=== PATIENT | female | born 1985 | race Caucasian/White ===

== ENCOUNTER 2016-05-29 00:27 | Emergency (ER) | payer OTHER ==
[~2016-05-29 00:27] MED LIST: ACET50TA PO; MOTR200T44 PO; PRENTAB55 PO; PROG50IN5 IM
[2016-05-29] MEDS ORDERED: traMADol 50 MG TAB As Ordered ONE ×2 (00:39)
[2016-05-29] MEDS ORDERED: CLINDAMYCIN 150 MG CAP As Ordered ONE (00:40)
--- NOTE | 2016-05-29 00:45 | EDDOCDS ---
Nurse's Notes [facility] Name: Angy Blount Age: 31 yrs Sex: Female : 1985 Arrival Date: 05/29/2016 Time: 00:27 Bed Triage 1 Private MD: Loreto Parker A Diagnosis: Dental caries Presentation: 05/29 00:33 Presenting complaint: Patient states: Cracked tooth. Pain started 2 days ago. Pt ld5 presents to ER with increasing pain. Adult Sepsis Screening: The patient does not have new or worsening altered mentation. Patient's respiratory rate is less than 22. Systolic blood pressure is greater than 100. Patient has a qSOFA score of 0- Negative Sepsis Screen. Suicide/Homicide risk assessment- the patient denies having any suicidal and/or homicidal ideations and does not present with any other emotional, behavioral or mental health complaints. 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 Transition of care: patient was not received from another setting of care. 00:33 Acuity: JULIA Level 4 ld5 00:33 Method Of Arrival: Walkin/Carried/Asstd ld5 Triage Assessment: 00:34 General: Appears in no apparent distress. Pain: Location: mouth Pain currently is 7 out ld5 of 10 on a pain scale. HIV screening NA for this visit Offered previously. Neurological: Level of Consciousness is awake, alert. 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 none - PMHx: none; - PSHx: Tubal ligation; - Social history: Smoking status: Patient uses tobacco products, current every day smoker. No barriers to communication noted, The patient speaks fluent Gabonese, Speaks appropriately for age. - Family history: Not pertinent. - : The pt / caregiver states he / she is not on anticoagulants. Home medication list is obtained from the patient. - Exposure Risk Screening:: None identified. Screenin:37 Screening information is obtained from the patient. Fall risk: No risks identified. ld5 Assistance ADL's: requires no assistance with activities of daily living. Abuse/DV Screen: The patient / caregiver reports he/she is: not in a situation that causes fear, pain or injury. Nutritional screening: No deficits noted. Advance Directives: Currently, there is no health care proxy. home support is adequate. Assessment: 00:37 General: Appears in no apparent distress. EENT: Reports pain in mouth. Respiratory: ld5 Airway is patent Respiratory effort is even, unlabored. Vital Signs: 00:34 BP 148 / 76; Pulse 77; Resp 16; Temp 97.9; Pulse Ox 100% on R/A; Weight 58.97 kg (R); ld5 Height 5 ft. 9 in. (175.26 cm) (R); Pain 7/10; 00:34 Body Mass Index 19.20 (58.97 kg, 175.26 cm) ld5 Vitals: 00:34 Log In Time: May 29, 2016 at 00:27. ld5 ED Course: 00:28 Patient visited by Elliot Stoddard Reg. pm4 00:28 Loreto Parker is Private Physician. pm4 00:28 Patient moved to Waiting pm4 00:32 Brandon Wright PA is PHCP. btw 00:32 Rod Donnelly DO is Attending Physician. btw 00:32 Patient moved to Triage 1 mcp 00:34 Patient visited by Brandon Wright PA. btw 00:34 Donta Diaz is Referral Physician. btw 00:34 Triage Initiated ld5 00:36 Patient visited by Marilu Paulino RN. ld5 00:37 The patient / caregiver is instructed regarding the plan of care and ED course. Patient ld5 has correct armband on for positive identification. 00:37 No IV's were initiated during this patient's visit. No procedures done that require ld5 assistance. 00:38 Patient visited by Marilu Paulino RN. ld5 00:44 Patient visited by Marilu Paulino RN. ld5 Administered Medications: 00:43 Drug: Clindamycin 300 mg [clindamycin 150 mg capsule (2 caps)] Route: PO; nn1 00:43 Drug: traMADol 50mg- 4 pack 1 packets [tramadol 50 mg tablet (1 tabs)] {Co-Signature: nn1 kas2 (Megan Chavez RN).} Route: PO; Order Results: There are currently no results for this order. Outcome: 00:35 Discharge ordered by Provider. btw 00:43 Discharge Assessment: Patient awake, alert and oriented x 3. No cognitive and/or ld5 functional deficits noted. Patient verbalized understanding of disposition instructions. patient administered narcotics - no. The following High Risk Discharge criteria are identified: None. Discharged to home ambulatory. Condition: stable. Discharge instructions given to patient, Instructed on discharge instructions, follow up and referral plans. medication usage, Demonstrated understanding of instructions, medications, Pt was receptive of discharge instructions/ teaching. Prescriptions given X 2. No special radiology studies were completed. Property :Personal belongings accompany Pt. 00:44 Patient left the ED. ld5 Signatures: Altagracia Fuller, RN RN Brandon Scruggs PA PA btw Dickerson, LauraRN RN ld5 Phillip TrinidadRN RN nn1 Elliot Stoddard, Reg Reg pm4 Megan Chavez RN kas2 MTDD
--- NOTE | 2016-05-29 00:45 | EDDOCDS ---
Physician Documentation [facility] Name: Angy Blount Age: 31 yrs Sex: Female : 1985 Arrival Date: 05/29/2016 Time: 00:27 Bed Triage 1 Private MD: Loreto Parker A Disposition: 05/29/16 00:35 Discharged to Home/Self Care. Impression: Dental caries. - Condition is Stable. - Discharge Instructions: Dental Pain. - Prescriptions for Clindamycin HCl 300 mg Oral Capsule - take 1 capsule by ORAL route every 6 hours; 40 capsule. etodolac 200 mg Oral Capsule - take 1 capsule by ORAL route 3 times per day; 30 capsule. - Medication Reconciliation, Local Pharmacy Hours form. - Follow up: Your, Dentist; When: Call to arrange an appointment; Reason: Further diagnostic work-up, Recheck today's complaints, Continuance of care. - Problem is an ongoing problem. - Symptoms are unchanged. Historical: - Allergies: SULFA (SULFONAMIDES); - Home Meds: 1. none - PMHx: none; - PSHx: Tubal ligation; - Social history: Smoking status: Patient uses tobacco products, current every day smoker. No barriers to communication noted, The patient speaks fluent Urdu, Speaks appropriately for age. - Family history: Not pertinent. - : The pt / caregiver states he / she is not on anticoagulants. Home medication list is obtained from the patient. - Exposure Risk Screening:: None identified. 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 9 in. (175.26 cm) (R); Pain 7/10; 00:34 Body Mass Index 19.20 (58.97 kg, 175.26 cm) ld5 MDM: 00:38 Clindamycin 300 mg PO once ordered. btw 00:38 traMADol 50mg- 4 pack 1 packets PO Per package directions; Dispense with patient. Take btw per package instructions. ordered. 00:39 Financial registration complete. hs2 Administered Medications: 00:43 Drug: Clindamycin 300 mg [clindamycin 150 mg capsule (2 caps)] Route: PO; nn1 00:43 Drug: traMADol 50mg- 4 pack 1 packets [tramadol 50 mg tablet (1 tabs)] {Co-Signature: nn1 joe2 (Megan Chavez RN).} Route: PO; Signatures: Brandon Wright PA PA btw Marilu Paulino RN RN ld5 Mirna Mccarthy, Reg Reg hs2 Phillip Trinidad RN nn1 Megan Chavez RN kas2 MTDD
--- NOTE | 2016-05-31 01:45 | EDDOCDS ---
Physician Documentation [facility] Name: Angy Blount Age: 31 yrs Sex: Female : 1985 Arrival Date: 05/29/2016 Time: 00:27 Bed Triage 1 Private MD: Loreto Parker A Disposition: 05/29/16 00:35 Discharged to Home/Self Care. Impression: Dental caries. - Condition is Stable. - Discharge Instructions: Dental Pain. - Prescriptions for Clindamycin HCl 300 mg Oral Capsule - take 1 capsule by ORAL route every 6 hours; 40 capsule. etodolac 200 mg Oral Capsule - take 1 capsule by ORAL route 3 times per day; 30 capsule. - Medication Reconciliation, Local Pharmacy Hours form. - Follow up: Your, Dentist; When: Call to arrange an appointment; Reason: Further diagnostic work-up, Recheck today's complaints, Continuance of care. - Problem is an ongoing problem. - Symptoms are unchanged. Historical: - Allergies: SULFA (SULFONAMIDES); - Home Meds: 1. none - PMHx: none; - PSHx: Tubal ligation; - Social history: Smoking status: Patient uses tobacco products, current every day smoker. No barriers to communication noted, The patient speaks fluent Faroese, Speaks appropriately for age. - Family history: Not pertinent. - : The pt / caregiver states he / she is not on anticoagulants. Home medication list is obtained from the patient. - Exposure Risk Screening:: None identified. 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 9 in. (175.26 cm) (R); Pain 7/10; 00:34 Body Mass Index 19.20 (58.97 kg, 175.26 cm) ld5 MDM: 00:38 Clindamycin 300 mg PO once ordered. btw 00:38 traMADol 50mg- 4 pack 1 packets PO Per package directions; Dispense with patient. Take btw per package instructions. ordered. 00:39 Financial registration complete. hs2 01:12 [facility] Payment Agreement was scanned into [employer] and attached to record. hs2 06:40 T-Sheet-- Draft Copy was scanned into [employer] and attached to record. se Administered Medications: 00:43 Drug: Clindamycin 300 mg [clindamycin 150 mg capsule (2 caps)] Route: PO; nn1 00:43 Drug: traMADol 50mg- 4 pack 1 packets [tramadol 50 mg tablet (1 tabs)] {Co-Signature: nn1 joe2 (Megan Chavez RN).} Route: PO; Signatures: Brandon Wright PA PA yogeshw Marilu PaulinoRN RN ld5 Mirna Mccarthy, Reg Reg hs2 Elke Bravo Nikkole RN nn1 Megan Chavez RN kas2 The chart was reviewed and I authenticate all verbal orders and agree with the evaluation and treatment provided.Attachments: 01:12 [facility] Payment Agreement hs2 06:40 T-Sheet-- Draft Copy [facility] Chart Complete MTDD
--- NOTE | 2016-05-31 01:45 | EDDOCDS ---
Nurse's Notes [facility] Name: Angy Blount Age: 31 yrs Sex: Female : 1985 Arrival Date: 05/29/2016 Time: 00:27 Bed Triage 1 Private MD: Loreto Parker A Diagnosis: Dental caries Presentation: 05/29 00:33 Presenting complaint: Patient states: Cracked tooth. Pain started 2 days ago. Pt ld5 presents to ER with increasing pain. Adult Sepsis Screening: The patient does not have new or worsening altered mentation. Patient's respiratory rate is less than 22. Systolic blood pressure is greater than 100. Patient has a qSOFA score of 0- Negative Sepsis Screen. Suicide/Homicide risk assessment- the patient denies having any suicidal and/or homicidal ideations and does not present with any other emotional, behavioral or mental health complaints. 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 Transition of care: patient was not received from another setting of care. 00:33 Acuity: JULIA Level 4 ld5 00:33 Method Of Arrival: Walkin/Carried/Asstd ld5 Triage Assessment: 00:34 General: Appears in no apparent distress. Pain: Location: mouth Pain currently is 7 out ld5 of 10 on a pain scale. HIV screening NA for this visit Offered previously. Neurological: Level of Consciousness is awake, alert. 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 none - PMHx: none; - PSHx: Tubal ligation; - Social history: Smoking status: Patient uses tobacco products, current every day smoker. No barriers to communication noted, The patient speaks fluent Sierra Leonean, Speaks appropriately for age. - Family history: Not pertinent. - : The pt / caregiver states he / she is not on anticoagulants. Home medication list is obtained from the patient. - Exposure Risk Screening:: None identified. Screenin:37 Screening information is obtained from the patient. Fall risk: No risks identified. ld5 Assistance ADL's: requires no assistance with activities of daily living. Abuse/DV Screen: The patient / caregiver reports he/she is: not in a situation that causes fear, pain or injury. Nutritional screening: No deficits noted. Advance Directives: Currently, there is no health care proxy. home support is adequate. Assessment: 00:37 General: Appears in no apparent distress. EENT: Reports pain in mouth. Respiratory: ld5 Airway is patent Respiratory effort is even, unlabored. Vital Signs: 00:34 BP 148 / 76; Pulse 77; Resp 16; Temp 97.9; Pulse Ox 100% on R/A; Weight 58.97 kg (R); ld5 Height 5 ft. 9 in. (175.26 cm) (R); Pain 7/10; 00:34 Body Mass Index 19.20 (58.97 kg, 175.26 cm) ld5 Vitals: 00:34 Log In Time: May 29, 2016 at 00:27. ld5 ED Course: 00:28 Patient visited by Elliot Stoddard Reg. pm4 00:28 Loreto Parker is Private Physician. pm4 00:28 Patient moved to Waiting pm4 00:32 Brandon Wright PA is PHCP. btw 00:32 Rod Donnelly DO is Attending Physician. btw 00:32 Patient moved to Triage 1 mcp 00:34 Patient visited by Brandon Wright PA. btw 00:34 Donta Diaz is Referral Physician. btw 00:34 Triage Initiated ld5 00:36 Patient visited by Marilu Paulino RN. ld5 00:37 The patient / caregiver is instructed regarding the plan of care and ED course. Patient ld5 has correct armband on for positive identification. 00:37 No IV's were initiated during this patient's visit. No procedures done that require ld5 assistance. 00:38 Patient visited by Marilu Paulino RN. ld5 00:44 Patient visited by Marilu Paulino RN. ld5 01:12 [facility] Payment Agreement was scanned into [employer] and attached to record. hs2 06:40 T-Sheet-- Draft Copy was scanned into [employer] and attached to record. se Administered Medications: 00:43 Drug: Clindamycin 300 mg [clindamycin 150 mg capsule (2 caps)] Route: PO; nn1 00:43 Drug: traMADol 50mg- 4 pack 1 packets [tramadol 50 mg tablet (1 tabs)] {Co-Signature: nn1 kas2 (Megan Chavez RN).} Route: PO; Order Results: There are currently no results for this order. Outcome: 00:35 Discharge ordered by Provider. btw 00:43 Discharge Assessment: Patient awake, alert and oriented x 3. No cognitive and/or ld5 functional deficits noted. Patient verbalized understanding of disposition instructions. patient administered narcotics - no. The following High Risk Discharge criteria are identified: None. Discharged to home ambulatory. Condition: stable. Discharge instructions given to patient, Instructed on discharge instructions, follow up and referral plans. medication usage, Demonstrated understanding of instructions, medications, Pt was receptive of discharge instructions/ teaching. Prescriptions given X 2. No special radiology studies were completed. Property :Personal belongings accompany Pt. 00:44 Patient left the ED. ld5 Signatures: Altagracia Fuller, RN RN Brandon Scruggs PA PA btw Marilu Paulino,GINA RN ld5 Phillip Trinidad RN RN nn1 Mirna Mccarthy, Reg Reg hs2 Elke Bravo Paul, Reg Reg pm4 Megan Chavez RN kas2 Chart Complete [facility]ENTER[facility]gar
--- NOTE | 2016-05-31 01:45 | EDDOCDS ---
Physician Documentation [facility] Name: Angy Blount Age: 31 yrs Sex: Female : 1985 Arrival Date: 05/29/2016 Time: 00:27 Bed Triage 1 Private MD: Loreto Parker A Disposition: 05/29/16 00:35 Discharged to Home/Self Care. Impression: Dental caries. - Condition is Stable. - Discharge Instructions: Dental Pain. - Prescriptions for Clindamycin HCl 300 mg Oral Capsule - take 1 capsule by ORAL route every 6 hours; 40 capsule. etodolac 200 mg Oral Capsule - take 1 capsule by ORAL route 3 times per day; 30 capsule. - Medication Reconciliation, Local Pharmacy Hours form. - Follow up: Your, Dentist; When: Call to arrange an appointment; Reason: Further diagnostic work-up, Recheck today's complaints, Continuance of care. - Problem is an ongoing problem. - Symptoms are unchanged. Historical: - Allergies: SULFA (SULFONAMIDES); - Home Meds: 1. none - PMHx: none; - PSHx: Tubal ligation; - Social history: Smoking status: Patient uses tobacco products, current every day smoker. No barriers to communication noted, The patient speaks fluent Japanese, Speaks appropriately for age. - Family history: Not pertinent. - : The pt / caregiver states he / she is not on anticoagulants. Home medication list is obtained from the patient. - Exposure Risk Screening:: None identified. 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 9 in. (175.26 cm) (R); Pain 7/10; 00:34 Body Mass Index 19.20 (58.97 kg, 175.26 cm) ld5 MDM: 00:38 Clindamycin 300 mg PO once ordered. btw 00:38 traMADol 50mg- 4 pack 1 packets PO Per package directions; Dispense with patient. Take btw per package instructions. ordered. 00:39 Financial registration complete. hs2 01:12 [facility] Payment Agreement was scanned into [employer] and attached to record. hs2 06:40 T-Sheet-- Draft Copy was scanned into [employer] and attached to record. se Administered Medications: 00:43 Drug: Clindamycin 300 mg [clindamycin 150 mg capsule (2 caps)] Route: PO; nn1 00:43 Drug: traMADol 50mg- 4 pack 1 packets [tramadol 50 mg tablet (1 tabs)] {Co-Signature: nn1 joe2 (Megan Chavez RN).} Route: PO; Signatures: Brandon Wright PA PA yogeshw Marilu PaulinoRN RN ld5 Mirna Mccarthy, Reg Reg hs2 Elke Bravo Nikkole RN nn1 Megan Chavez RN kas2 The chart was reviewed and I authenticate all verbal orders and agree with the evaluation and treatment provided.Attachments: 01:12 [facility] [place] [facility] Payment Agreement hs2 06:40 T-Sheet-- Draft Copy [facility] Chart Complete MTDD
== END 2016-05-29 00:44 | disposition home or self-care (01) ==
LOC: M ED 00:27
DX: K02.9 Dental caries, unspecified (principal); F17.200 Nicotine dependence, unspecified, uncomplicated; Z88.2 Allergy status to sulfonamides

== ENCOUNTER 2016-06-09 18:41 | Emergency (ER) | payer OTHER ==
[2016-06-09] MEDS ORDERED: NORCO 5/325MG TABLET (BULK) As Ordered ONE (19:57)
--- NOTE | 2016-06-09 20:05 | EDDOCDS ---
Nurse's Notes [facility] Name: Angy Blount Age: 31 yrs Sex: Female : 1985 Arrival Date: 06/09/2016 Time: 18:41 Bed Triage 2 Private MD: Loreto Parker A Diagnosis: Dental caries Presentation: 06/09 18:46 Presenting complaint: Patient states: jaw pain on left side into ear. Adult Sepsis hs1 Screening: The patient does not have new or worsening altered mentation. Patient's respiratory rate is less than 22. Systolic blood pressure is greater than 100. Patient has a qSOFA score of 0- Negative Sepsis Screen. Suicide/Homicide risk assessment- the patient denies having any suicidal and/or homicidal ideations and does not present with any other emotional, behavioral or mental health complaints. 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 Transition of care: patient was not received from another setting of care. 18:46 Acuity: JULIA Level 4 hs1 18:46 Method Of Arrival: Walkin/Carried/Asstd hs1 Triage Assessment: 18:50 General: Appears uncomfortable, Behavior is appropriate for age, cooperative. Pain: hs1 Location: mouth Pain currently is 7 out of 10 on a pain scale. Quality of pain is described as throbbing. HIV screening NA for this visit Offered previously. EENT: Reports pain Pain is 7 out of 10 on a pain scale. Historical: - Allergies: SULFA (SULFONAMIDES); - Home Meds: 1. clindamycin HCl 300 mg Oral cap 1 cap every 6 hours (Last dose: 06/09/2016 17:30) - PMHx: none; - PSHx: Tubal ligation; - Social history: Smoking status: Patient uses tobacco products, heavy tobacco smoker. No barriers to communication noted, The patient speaks fluent Luxembourgish, Speaks appropriately for age. - Family history: Not pertinent. - : The pt / caregiver states he / she is not on anticoagulants. Home medication list is obtained from. - Exposure Risk Screening:: None identified. Screenin:03 Screening information is obtained from the patient. Fall risk: No risks identified. ttb Assistance ADL's: requires no assistance with activities of daily living. Abuse/DV Screen: The patient / caregiver reports he/she is: not in a situation that causes fear, pain or injury. Nutritional screening: No deficits noted. Advance Directives: Currently, there is no health care proxy. home support is adequate. Assessment: 20:01 General: Appears in no apparent distress, uncomfortable, well nourished, well groomed, ttb Behavior is appropriate for age, cooperative, pleasant. Neurological: Level of Consciousness is awake, alert. Respiratory: No deficits noted. Airway is patent Respiratory effort is even, unlabored. Derm: Skin is normal. Vital Signs: 18:43 BP 127 / 71; Pulse 84; Resp 18 S; Temp 98.1(O); Pulse Ox 100% on R/A; Weight 58.97 kg gr2 (R); Height 5 ft. 8 in. (172.72 cm) (R); Pain 8/10; 20:01 BP 124 / 74; Pulse 76; Resp 18; Temp 98.2; Pulse Ox 100% on R/A; Pain 8/10; ttb 18:43 Body Mass Index 19.77 (58.97 kg, 172.72 cm) gr2 Vitals: 18:43 Log In Time: June 09, 2016 at 18:43. gr2 ED Course: 18:42 Patient visited by Ravi Garcia. gr2 18:42 Loreto Parker is Private Physician. gr2 18:42 Patient moved to Waiting gr2 18:44 Patient visited by Ravi Garcia. gr2 18:44 Patient moved to Pre RCE gr2 18:47 Triage Initiated hs1 19:46 Nikunj Aguilar PA is PHCP. mo1 19:46 Song Anaya MD is Attending Physician. mo1 19:46 Patient moved to Triage 2 ttb 19:47 Patient visited by Nikunj Aguilar PA. mo1 19:56 Loreto Parker is Referral Physician. mo1 20:03 The patient / caregiver is instructed regarding the plan of care and ED course. Patient ttb has correct armband on for positive identification. 20:03 No IV's were initiated during this patient's visit. No procedures done that require ttb assistance. Administered Medications: 20:01 Drug: HYDROcodone-acetaminophen 4 pack- 1 packets [hydrocodone 5 mg-acetaminophen 325 ttb mg tablet (1 tabs)] {Co-Signature: kmg1 (Raiza Stone RN).} Route: PO; 20:03 Follow up: Response: Med's dispensed home ttb Order Results: There are currently no results for this order. Outcome: 19:56 Discharge ordered by Provider. mo1 20:02 Discharge Assessment: Patient awake, alert and oriented x 3. No cognitive and/or ttb functional deficits noted. Patient verbalized understanding of disposition instructions. Patient awake and alert. patient administered narcotics - no. The following High Risk Discharge criteria are identified: None. Discharged to home ambulatory. Condition: good Condition: stable Condition: improved. Discharge instructions given to patient, Instructed on discharge instructions, follow up and referral plans. medication usage, no driving heavy equipment, no drinking with medication, Demonstrated understanding of instructions, medications, no d/d with narcs Pt was receptive of discharge instructions/ teaching. Prescriptions given X 1, meds dispensed. No special radiology studies were completed. Property :Personal belongings accompany Pt. 20:04 Patient left the ED. ttb Signatures: Janiya Rascon RN RN hs1 Nga Ortiz RN RN ttb Ravi Garcia 2 Nikunj Aguilar PA PA mo1 Raiza Stone RN kmg1 [email or web address]
--- NOTE | 2016-06-09 20:05 | EDDOCDS ---
Physician Documentation [facility] Name: Angy Blount Age: 31 yrs Sex: Female : 1985 Arrival Date: 06/09/2016 Time: 18:41 Bed Triage 2 Private MD: Loreto Parker A Disposition: 06/09/16 19:56 Discharged to Home/Self Care. Impression: Dental caries. - Condition is Stable. - Discharge Instructions: Dental Abscess, Dental Pain. - Prescriptions for Derby 5- 325 mg Oral Tablet - take 1 tablet by ORAL route every 6 hours As needed MDD: 4 tabs; 12 tablet. - Medication Reconciliation, Local Pharmacy Hours form. - Follow up: Loreto Parker; When: Call to arrange an appointment; Reason: Recheck today's complaints, Continuance of care. - Problem is an ongoing problem. - Symptoms are unchanged. Historical: - Allergies: SULFA (SULFONAMIDES); - Home Meds: 1. clindamycin HCl 300 mg Oral cap 1 cap every 6 hours (Last dose: 06/09/2016 17:30) - PMHx: none; - PSHx: Tubal ligation; - Social history: Smoking status: Patient uses tobacco products, heavy tobacco smoker. No barriers to communication noted, The patient speaks fluent Latvian, Speaks appropriately for age. - Family history: Not pertinent. - : The pt / caregiver states he / she is not on anticoagulants. Home medication list is obtained from. - Exposure Risk Screening:: None identified. Vital Signs: 06/09 18:43 BP 127 / 71; Pulse 84; Resp 18 S; Temp 98.1(O); Pulse Ox 100% on R/A; Weight 58.97 kg / gr2 130.01 lbs (R); Height 5 ft. 8 in. (172.72 cm) (R); Pain 8/10; 20:01 BP 124 / 74; Pulse 76; Resp 18; Temp 98.2; Pulse Ox 100% on R/A; Pain 8/10; ttb 18:43 Body Mass Index 19.77 (58.97 kg, 172.72 cm) gr2 MDM: 19:54 HYDROcodone-acetaminophen 4 pack- 5 mg-325 mg 1 packets PO Per package directions; mo1 Dispense with patient. 1 po q4h prn for pain ordered. Administered Medications: 20:01 Drug: HYDROcodone-acetaminophen 4 pack- 1 packets [hydrocodone 5 mg-acetaminophen 325 ttb mg tablet (1 tabs)] {Co-Signature: kmg1 (Raiza Stone RN).} Route: PO; 20:03 Follow up: Response: Med's dispensed home ttb Signatures: Janiya Rascon RN RN hs1 Nga Ortiz RN RN ttb Nikunj Aguilar PA PA mo1 Raiza Stone RN kmg1 MTDD
--- NOTE | 2016-06-11 21:06 | EDDOCDS ---
Physician Documentation [facility] Name: Angy Blount Age: 31 yrs Sex: Female : 1985 Arrival Date: 06/09/2016 Time: 18:41 Bed Triage 2 Private MD: Loreto Parker A Disposition: 06/09/16 19:56 Discharged to Home/Self Care. Impression: Dental caries. - Condition is Stable. - Discharge Instructions: Dental Abscess, Dental Pain. - Prescriptions for Clay 5- 325 mg Oral Tablet - take 1 tablet by ORAL route every 6 hours As needed MDD: 4 tabs; 12 tablet. - Medication Reconciliation, Local Pharmacy Hours form. - Follow up: Loreto Parker; When: Call to arrange an appointment; Reason: Recheck today's complaints, Continuance of care. - Problem is an ongoing problem. - Symptoms are unchanged. Historical: - Allergies: SULFA (SULFONAMIDES); - Home Meds: 1. clindamycin HCl 300 mg Oral cap 1 cap every 6 hours (Last dose: 06/09/2016 17:30) - PMHx: none; - PSHx: Tubal ligation; - Social history: Smoking status: Patient uses tobacco products, heavy tobacco smoker. No barriers to communication noted, The patient speaks fluent Ugandan, Speaks appropriately for age. - Family history: Not pertinent. - : The pt / caregiver states he / she is not on anticoagulants. Home medication list is obtained from. - Exposure Risk Screening:: None identified. Vital Signs: 06/09 18:43 BP 127 / 71; Pulse 84; Resp 18 S; Temp 98.1(O); Pulse Ox 100% on R/A; Weight 58.97 kg / gr2 130.01 lbs (R); Height 5 ft. 8 in. (172.72 cm) (R); Pain 8/10; 20:01 BP 124 / 74; Pulse 76; Resp 18; Temp 98.2; Pulse Ox 100% on R/A; Pain 8/10; ttb 18:43 Body Mass Index 19.77 (58.97 kg, 172.72 cm) gr2 MDM: 19:54 HYDROcodone-acetaminophen 4 pack- 5 mg-325 mg 1 packets PO Per package directions; mo1 Dispense with patient. 1 po q4h prn for pain ordered. 20:11 [facility] Payment Agreement was scanned into [employer] and attached to record. [facility] : Financial registration complete. [facility] 06/10 13:09 T-Sheet-- Draft Copy was scanned into [employer] and attached to record. gb Administered Medications: 06/09 20:01 Drug: HYDROcodone-acetaminophen 4 pack- 1 packets [hydrocodone 5 mg-acetaminophen 325 ttb mg tablet (1 tabs)] {Co-Signature: kmg1 (Raiza Stone RN).} Route: PO; 20:03 Follow up: Response: Med's dispensed home ttb Signatures: Flaquita Mir, Reg Reg gb Janiya Rascon RN RN hs1 Nga Ortiz RN RN ttb Nikunj Aguilar PA PA mo1 Betina Martinez b Raiza Stone RN kmg1 The chart was reviewed and I authenticate all verbal orders and agree with the evaluation and treatment provided.Attachments: :11 [facility] Payment Agreement [facility] 06/10 13:09 T-Sheet-- Draft Copy gb Chart Complete MTDD
--- NOTE | 2016-06-11 21:06 | EDDOCDS ---
Physician Documentation [facility] Name: Angy Blount Age: 31 yrs Sex: Female : 1985 Arrival Date: 06/09/2016 Time: 18:41 Bed Triage 2 Private MD: Loreto Parker A Disposition: 06/09/16 19:56 Discharged to Home/Self Care. Impression: Dental caries. - Condition is Stable. - Discharge Instructions: Dental Abscess, Dental Pain. - Prescriptions for Geraldine 5- 325 mg Oral Tablet - take 1 tablet by ORAL route every 6 hours As needed MDD: 4 tabs; 12 tablet. - Medication Reconciliation, Local Pharmacy Hours form. - Follow up: Loreto Parker; When: Call to arrange an appointment; Reason: Recheck today's complaints, Continuance of care. - Problem is an ongoing problem. - Symptoms are unchanged. Historical: - Allergies: SULFA (SULFONAMIDES); - Home Meds: 1. clindamycin HCl 300 mg Oral cap 1 cap every 6 hours (Last dose: 06/09/2016 17:30) - PMHx: none; - PSHx: Tubal ligation; - Social history: Smoking status: Patient uses tobacco products, heavy tobacco smoker. No barriers to communication noted, The patient speaks fluent Malawian, Speaks appropriately for age. - Family history: Not pertinent. - : The pt / caregiver states he / she is not on anticoagulants. Home medication list is obtained from. - Exposure Risk Screening:: None identified. Vital Signs: 06/09 18:43 BP 127 / 71; Pulse 84; Resp 18 S; Temp 98.1(O); Pulse Ox 100% on R/A; Weight 58.97 kg / gr2 130.01 lbs (R); Height 5 ft. 8 in. (172.72 cm) (R); Pain 8/10; 20:01 BP 124 / 74; Pulse 76; Resp 18; Temp 98.2; Pulse Ox 100% on R/A; Pain 8/10; ttb 18:43 Body Mass Index 19.77 (58.97 kg, 172.72 cm) gr2 MDM: 19:54 HYDROcodone-acetaminophen 4 pack- 5 mg-325 mg 1 packets PO Per package directions; mo1 Dispense with patient. 1 po q4h prn for pain ordered. 20:11 [facility] Payment Agreement was scanned into [employer] and attached to record. banner : Financial registration complete. banner 06/10 13:09 T-Sheet-- Draft Copy was scanned into [employer] and attached to record. gb Administered Medications: 06/09 20:01 Drug: HYDROcodone-acetaminophen 4 pack- 1 packets [hydrocodone 5 mg-acetaminophen 325 ttb mg tablet (1 tabs)] {Co-Signature: kmg1 (Raiza Stone RN).} Route: PO; 20:03 Follow up: Response: Med's dispensed home ttb Signatures: Flaquita Mir, Reg Reg gb Janiya Rascon RN RN hs1 Nga Ortiz RN RN ttb Nikunj Aguilar PA PA mo1 Betina Martinez b Raiza Stone RN kmg1 The chart was reviewed and I authenticate all verbal orders and agree with the evaluation and treatment provided.Attachments: :11 [facility] Payment Agreement banner 06/10 13:09 T-Sheet-- Draft Copy gb Chart Complete MTDD
--- NOTE | 2016-06-11 21:06 | EDDOCDS ---
Nurse's Notes [facility] Name: Angy Blount Age: 31 yrs Sex: Female : 1985 Arrival Date: 06/09/2016 Time: 18:41 Bed Triage 2 Private MD: Loreto Parker A Diagnosis: Dental caries Presentation: 06/09 18:46 Presenting complaint: Patient states: jaw pain on left side into ear. Adult Sepsis hs1 Screening: The patient does not have new or worsening altered mentation. Patient's respiratory rate is less than 22. Systolic blood pressure is greater than 100. Patient has a qSOFA score of 0- Negative Sepsis Screen. Suicide/Homicide risk assessment- the patient denies having any suicidal and/or homicidal ideations and does not present with any other emotional, behavioral or mental health complaints. Status: Patient is not a financial services agent or dependent. Transition of care: patient was not received from another setting of care. 18:46 Acuity: JULIA Level 4 hs1 18:46 Method Of Arrival: Walkin/Carried/Asstd hs1 Triage Assessment: 18:50 General: Appears uncomfortable, Behavior is appropriate for age, cooperative. Pain: hs1 Location: mouth Pain currently is 7 out of 10 on a pain scale. Quality of pain is described as throbbing. HIV screening NA for this visit Offered previously. EENT: Reports pain Pain is 7 out of 10 on a pain scale. Historical: - Allergies: SULFA (SULFONAMIDES); - Home Meds: 1. clindamycin HCl 300 mg Oral cap 1 cap every 6 hours (Last dose: 06/09/2016 17:30) - PMHx: none; - PSHx: Tubal ligation; - Social history: Smoking status: Patient uses tobacco products, heavy tobacco smoker. No barriers to communication noted, The patient speaks fluent Occitan, Speaks appropriately for age. - Family history: Not pertinent. - : The pt / caregiver states he / she is not on anticoagulants. Home medication list is obtained from. - Exposure Risk Screening:: None identified. Screenin:03 Screening information is obtained from the patient. Fall risk: No risks identified. ttb Assistance ADL's: requires no assistance with activities of daily living. Abuse/DV Screen: The patient / caregiver reports he/she is: not in a situation that causes fear, pain or injury. Nutritional screening: No deficits noted. Advance Directives: Currently, there is no health care proxy. home support is adequate. Assessment: 20:01 General: Appears in no apparent distress, uncomfortable, well nourished, well groomed, ttb Behavior is appropriate for age, cooperative, pleasant. Neurological: Level of Consciousness is awake, alert. Respiratory: No deficits noted. Airway is patent Respiratory effort is even, unlabored. Derm: Skin is normal. Vital Signs: 18:43 BP 127 / 71; Pulse 84; Resp 18 S; Temp 98.1(O); Pulse Ox 100% on R/A; Weight 58.97 kg gr2 (R); Height 5 ft. 8 in. (172.72 cm) (R); Pain 8/10; 20:01 BP 124 / 74; Pulse 76; Resp 18; Temp 98.2; Pulse Ox 100% on R/A; Pain 8/10; ttb 18:43 Body Mass Index 19.77 (58.97 kg, 172.72 cm) gr2 Vitals: 18:43 Log In Time: June 09, 2016 at 18:43. gr2 ED Course: 18:42 Patient visited by Ravi Garcia. gr2 18:42 Loreto Parker is Private Physician. gr2 18:42 Patient moved to Waiting gr2 18:44 Patient visited by Ravi Garcia. gr2 18:44 Patient moved to Pre RCE gr2 18:47 Triage Initiated hs1 19:46 Nikunj Aguilar PA is PHCP. mo1 19:46 Song Anaya MD is Attending Physician. mo1 19:46 Patient moved to Triage 2 ttb 19:47 Patient visited by Nikunj Aguilar PA. mo1 19:56 Loreto Parker is Referral Physician. mo1 20:03 The patient / caregiver is instructed regarding the plan of care and ED course. Patient ttb has correct armband on for positive identification. 20:03 No IV's were initiated during this patient's visit. No procedures done that require ttb assistance. 20:11 [facility] [place] Agreement was scanned into [employer] and attached to record. gjb 06/10 13:09 T-Sheet-- Draft Copy was scanned into [employer] and attached to record. gb Administered Medications: 06/09 20:01 Drug: HYDROcodone-acetaminophen 4 pack- 1 packets [hydrocodone 5 mg-acetaminophen 325 ttb mg tablet (1 tabs)] {Co-Signature: kmg1 (Raiza Stone RN).} Route: PO; 20:03 Follow up: Response: Med's dispensed home ttb Order Results: There are currently no results for this order. Outcome: 19:56 Discharge ordered by Provider. mo1 20:02 Discharge Assessment: Patient awake, alert and oriented x 3. No cognitive and/or ttb functional deficits noted. Patient verbalized understanding of disposition instructions. Patient awake and alert. patient administered narcotics - no. The following High Risk Discharge criteria are identified: None. Discharged to home ambulatory. Condition: good Condition: stable Condition: improved. Discharge instructions given to patient, Instructed on discharge instructions, follow up and referral plans. medication usage, no driving heavy equipment, no drinking with medication, Demonstrated understanding of instructions, medications, no d/d with narcs Pt was receptive of discharge instructions/ teaching. Prescriptions given X 1, meds dispensed. No special radiology studies were completed. Property :Personal belongings accompany Pt. 20:04 Patient left the ED. ttb Signatures: Flaquita Mir, Reg Reg gb Janiya Rascon RN RN hs1 Nga Ortiz RN RN ttb Ravi Garcia gr2 Nikunj Aguilar PA PA mo1 Betina Martinezb Raiza Stone RN kmg1 Chart Complete MTDD
== END 2016-06-09 20:04 | disposition home or self-care (01) ==
LOC: M ED 18:41
DX: K02.9 Dental caries, unspecified (principal); H92.02 Otalgia, left ear; K13.79 Other lesions of oral mucosa; F17.210 Nicotine dependence, cigarettes, uncomplicated; Z79.2 Long term (current) use of antibiotics; Z88.2 Allergy status to sulfonamides

== ENCOUNTER → 2016-06-19 | Outpatient (REF) | payer OTHER | LOC: M LAB REF 12:06 | PROVIDERS: ATTEND Physician Assistant Medical | DX: B34.9 Viral infection, unspecified (principal) ==

== ENCOUNTER 2016-07-18 21:35 | Emergency (ER) | payer OTHER ==
[~2016-07-18] VITALS: Ht 172.7 cm; Wt 59.0 kg
[2016-07-18] MEDS ORDERED: METHOCARBAMOL 500 MG TAB PO ONE (23:45)
[2016-07-18] MEDS ORDERED: IBUPROFEN 800 MG TAB PO ONE (23:45)
[2016-07-18] MEDS ORDERED: MEDR4PAK PO (23:58)
[2016-07-18] MEDS ORDERED: ROBA500T PO (23:58)
[2016-07-19 00:21] VITALS: BP 116/66
== END 2016-07-19 00:24 | disposition home or self-care (01) ==
LOC: M ED 22:38
DX: M54.5 Low back pain (principal); G89.29 Other chronic pain

== ENCOUNTER → 2016-07-22 | Outpatient (CLI) | payer OTHER ==
[~2016-07-22] MED LIST changes: +MEDR4PAK PO; +ROBA500T PO
--- NOTE | 2016-07-22 12:31 | REP ---
LUMBOSACRAL SPINE SERIES: Five views of the lumbosacral spine performed. There is no compression fracture or malalignment. There is normal lumbar lordosis with no spondylolysis or spondylolisthesis. Disc spaces are well preserved. Posterior elements are intact. There is sacralization of L5 indicating a transitional vertebral body. IMPRESSION: Sacralization of L5 vertebral body indicating a transitional lumbar vertebral body. Otherwise unremarkable. Signed by Guy Blake MD 07/22/2016 12:37 P
== END ==
LOC: M RAD 10:21
PROVIDERS: ATTEND Nurse Practitioner Family
DX: M54.5 Low back pain (principal)

== ENCOUNTER 2016-07-28 11:00 | Outpatient (RCR) | payer OTHER | END 2016-07-30 | LOC: M PT 11:00 | PROVIDERS: ATTEND Nurse Practitioner Family | DX: M54.5 Low back pain (principal) ==

== ENCOUNTER 2016-08-19 10:15 | Outpatient (RCR) | payer OTHER | END 2016-08-29 | LOC: M PT 10:15 | PROVIDERS: ATTEND Nurse Practitioner Family | DX: M54.5 Low back pain (principal) ==

== ENCOUNTER 2016-09-29 20:00 | Emergency (ER) | payer OTHER ==
[~2016-09-29] VITALS: Ht 172.7 cm; Wt 59.0 kg
[2016-09-29] MEDS ORDERED: IBUP600T26 PO (21:12)
[2016-09-29 21:18] VITALS: BP 119/67
--- NOTE | 2016-09-29 22:17 | REP ---
Clinical: Pain . Technique: AP, lateral, bilateral oblique views right second digit . Findings: The osseous structures and joint spaces are intact and normal. There is no evidence for acute fracture or dislocation. Surrounding soft tissues are unremarkable. No subcutaneous emphysema or radiodense foreign body. Impression: Normal examination. No acute fracture or dislocation. Signed by Malik Matute MD 09/29/2016 10:09 P
== END 2016-09-29 21:21 | disposition home or self-care (01) ==
LOC: M ED 20:43
DX: S96.111A Strain of muscle and tendon of long extensor muscle of toe at ankle and foot level, right foot, initial encounter (principal); M79.674 Pain in right toe(s); X58.XXXA Exposure to other specified factors, initial encounter; Y92.019 Unspecified place in single-family (private) house as the place of occurrence of the external cause; Y93.89 Activity, other specified; Y99.9 Unspecified external cause status; Z88.2 Allergy status to sulfonamides; Z88.8 Allergy status to other drugs, medicaments and biological substances

== ENCOUNTER 2016-12-06 01:13 | Emergency (ER) | payer OTHER ==
[~2016-12-06 01:13] MED LIST changes: +IBUP-1022 PO
[2016-12-06 01:36] VITALS: BP 117/64
[2016-12-06] MEDS ORDERED: BENA25CA4 PO (01:39)
[2016-12-06] MEDS ORDERED: FLUORESCEIN OPHTH 1 MG STRIP OU ONE (03:00)
[2016-12-06] MEDS ORDERED: TETRACAINE 0.5% OPHTH SOLN 4ML OU ONE (03:00)
[2016-12-06] MEDS ORDERED: OLOP1OPD OU (03:20)
[2016-12-06] MEDS ORDERED: predniSONE 20 MG TAB PO ONE (03:30)
== END 2016-12-06 03:30 | disposition home or self-care (01) ==
LOC: M ED 01:13
DX: H10.11 Acute atopic conjunctivitis, right eye (principal); Z79.899 Other long term (current) drug therapy; Z88.2 Allergy status to sulfonamides; Z88.1 Allergy status to other antibiotic agents

== ENCOUNTER → 2017-06-01 | Outpatient (REF) | payer OTHER ==
[2017-06-01 21:10] LABS: INFLUENZA A AMPLIFICATION NEGATIVE (NEGATIVE); INFLUENZA B AMPLIFICATION NEGATIVE (NEGATIVE); RSV AMPLIFICATION NEGATIVE (NEGATIVE)
== END ==
LOC: M LAB REF 14:58
DX: J11.1 Influenza due to unidentified influenza virus with other respiratory manifestations (principal)
CPT/HCPCS: 87070

== ENCOUNTER 2017-12-19 15:12 | Emergency (ER) | payer OTHER ==
[2017-12-19] MEDS: PERCOCET 5MG/325MG TAB PO (17:14)
[2017-12-19] MEDS ORDERED: LIDOCAINE 2% MDV 20 ML VIAL As Ordered (17:37)
[2017-12-19] MEDS: cefTRIAXone SOD 1 GM VIAL (J0696) IM (17:49)
== END 2017-12-19 18:20 | disposition home or self-care (01) ==
LOC: M ED 15:12
DX: S62.661A Nondisplaced fracture of distal phalanx of left index finger, initial encounter for closed fracture (principal); W23.0XXA Caught, crushed, jammed, or pinched between moving objects, initial encounter; Y92.009 Unspecified place in unspecified non-institutional (private) residence as the place of occurrence of the external cause; J45.909 Unspecified asthma, uncomplicated; M41.9 Scoliosis, unspecified; F41.9 Anxiety disorder, unspecified; F33.9 Major depressive disorder, recurrent, unspecified; R01.1 Cardiac murmur, unspecified; F17.200 Nicotine dependence, unspecified, uncomplicated; Z88.1 Allergy status to other antibiotic agents; Z88.2 Allergy status to sulfonamides
CPT/HCPCS: J0696

== ENCOUNTER → 2018-07-16 | Outpatient (REF) | payer OTHER ==
[~2018-07-16] MED LIST changes: -ACET50TA PO; +BENA25CA4 PO; +DICL75TA PO; +KEFL500C17 PO; +MAPA500T2 PO; +OLOP1OPD OU; +PERC5TAB12 PO
[2018-07-16 22:14] LABS: INFLUENZA A AMPLIFICATION NEGATIVE (NEGATIVE); INFLUENZA B AMPLIFICATION NEGATIVE (NEGATIVE)
== END ==
LOC: M LAB REF 09:21
PROVIDERS: ATTEND Physician Assistant Medical
DX: J11.1 Influenza due to unidentified influenza virus with other respiratory manifestations (principal)

== ENCOUNTER → 2021-06-08 | Outpatient (REF) | payer OTHER ==
[~2021-06-08] MED LIST changes: -OLOP1OPD OU; +PATA2.5S OU
== END ==
LOC: M SFHCWAGY 12:57
PROVIDERS: ATTEND Advanced Practice Midwife
DX: Z12.4 Encounter for screening for malignant neoplasm of cervix (principal); R87.610 Atypical squamous cells of undetermined significance on cytologic smear of cervix (ASC-US)

== ENCOUNTER → 2021-06-09 | Outpatient (CLI) | payer OTHER | LOC: M WHC 08:24 | PROVIDERS: ATTEND Advanced Practice Midwife | DX: D25.9 Leiomyoma of uterus, unspecified (principal) ==

== ENCOUNTER → 2021-08-19 | Outpatient (CLI) | payer OTHER | LOC: M RAD 08:22 | PROVIDERS: ATTEND Otolaryngology | DX: J32.9 Chronic sinusitis, unspecified (principal) ==

== ENCOUNTER → 2021-10-20 | Outpatient (CLI) | payer OTHER | LOC: M SLEEP HO 12:29 | PROVIDERS: ATTEND Nurse Practitioner Family | DX: R06.83 Snoring (principal) ==

== ENCOUNTER 2021-10-25 14:39 | Emergency (ER) | payer OTHER ==
[~2021-10-25] VITALS: Ht 175.3 cm; Wt 142.0 kg
[2021-10-25 16:20] LABS: BASO # 0.1 10^3/uL (0.0-0.2); BASO % 0.8 % (0.0-1.0); EOS # 0.2 10^3/uL (0.0-0.5); EOS % 2.1 % (0.0-3.0); HEMATOCRIT 42.9 % (36.0-47.0); HEMOGLOBIN 14.4 g/dl (12.0-15.5); LYMPH % 26.1 % (24.0-44.0); MEAN CORPUSCULAR HEMOGLOBIN 31.2 pg (27.0-33.0); MEAN CORPUSCULAR HGB CONC 33.6 g/dl (32.0-36.5); MEAN CORPUSCULAR VOLUME 92.9 fl (80.0-96.0); MONO # 0.7 10^3/uL (0.0-0.8); MONO % 8.6 % (2.0-8.0); NEUTROPHILS # 4.7 10^3/uL (1.5-8.5); NEUTROPHILS % 62.1 % (36.0-66.0); PLATELET COUNT, AUTOMATED 279 10^3/uL (150-450); RED BLOOD COUNT 4.62 10^6/uL (4.00-5.40); WHITE BLOOD COUNT 7.6 10^3/uL (4.0-10.0)
[2021-10-25] MEDS ORDERED: KETOROLAC 30 MG/ML 1ML VIAL IV ONE (16:35)
[2021-10-25] MEDS ORDERED: NS 1,000 ML IV ONE (16:35)
[2021-10-25 16:54] LABS: CK-MB VALUE MASS < 1.0 NG/ML (<3.6); CPK CREATINE PHOSPHOKINASE 138 U/L (26-192); MB/CK RELATIVE INDEX 0.72 (< OR =4)
[2021-10-25 17:19] LABS: BLOOD UREA NITROGEN 11 MG/DL (7-18); CALCIUM LEVEL 9.5 MG/DL (8.5-10.1); CARBON DIOXIDE LEVEL 27 MEQ/L (21-32); CHLORIDE LEVEL 111 MEQ/L (98-107); CREATININE FOR GFR 0.79 MG/DL (0.55-1.30); GLOMERULAR FILTRATION RATE > 60.0 (>60); GLUCOSE, FASTING 70 MG/DL (70-100); POTASSIUM SERUM 4.4 MEQ/L (3.5-5.1); SODIUM LEVEL 144 MEQ/L (136-145)
[2021-10-25] MEDS ORDERED: NAPR-837 PO (19:07)
[2021-10-25 19:13] VITALS: BP 112/69
== END 2021-10-25 19:31 | disposition home or self-care (01) ==
LOC: M ED 14:39
DX: R07.89 Other chest pain (principal); F17.200 Nicotine dependence, unspecified, uncomplicated; Z88.1 Allergy status to other antibiotic agents; Z88.2 Allergy status to sulfonamides
CPT/HCPCS: 71046; 80048; 82550; 82553; 85025; 85379; 86618; 93005; 93971; 96360; 96374; 99284; J1885

== ENCOUNTER → 2022-01-06 | Outpatient (CLI) | payer OTHER ==
[~2022-01-06] MED LIST changes: +NAPR-837 PO
== END ==
LOC: M RAD 08:42
PROVIDERS: ATTEND Pediatrics
DX: M25.551 Pain in right hip (principal)

== ENCOUNTER → 2022-01-14 | Outpatient (CLI) | payer OTHER | LOC: M SLEEP 20:00 | PROVIDERS: ATTEND Nurse Practitioner Family | DX: G47.33 Obstructive sleep apnea (adult) (pediatric) (principal) ==

== ENCOUNTER 2022-03-31 00:58 | Emergency (ER) | payer OTHER ==
[~2022-03-31] VITALS: Ht 174 cm; Wt 67.0 kg
[2022-03-31 01:01] VITALS: BP 138/87
[2022-03-31] MEDS ORDERED: VITA200032 (01:11)
[2022-03-31] MEDS ORDERED: FAMO40TA3 (01:11)
[2022-03-31] MEDS ORDERED: BUPR150T12 (01:11)
[2022-03-31] MEDS ORDERED: MAGN400T2 (01:11)
[2022-03-31] MEDS ORDERED: BUPR300T92 (01:11)
== END 2022-03-31 05:47 | disposition left against medical advice (07) ==
LOC: M ED 00:58
DX: Z53.21 Procedure and treatment not carried out due to patient leaving prior to being seen by health care provider (principal)

== ENCOUNTER 2022-08-01 21:11 | Emergency (ER) | payer OTHER ==
[~2022-08-01] VITALS: Ht 172.7 cm; Wt 66.9 kg
[~2022-08-01 21:11] MED LIST changes: +BUPR150T12; +BUPR300T92; +FAMO40TA3; +MAGN400T2; +VITA200032
[2022-08-02 00:21] VITALS: BP 122/68
== END 2022-08-02 00:31 | disposition home or self-care (01) ==
LOC: EDBD 21:11 → M ED 21:11
DX: Z77.21 Contact with and (suspected) exposure to potentially hazardous body fluids (principal); J45.909 Unspecified asthma, uncomplicated; M54.9 Dorsalgia, unspecified; R01.1 Cardiac murmur, unspecified; F32.A Depression, unspecified; F41.9 Anxiety disorder, unspecified; F17.210 Nicotine dependence, cigarettes, uncomplicated; Z88.2 Allergy status to sulfonamides; Z88.8 Allergy status to other drugs, medicaments and biological substances

== ENCOUNTER → 2022-12-15 | Outpatient (REF) | payer OTHER ==
[2022-12-15 17:06] LABS: BASO # 0.1 10^3/uL (0.0-0.2); BASO % 0.5 % (0.0-1.0); EOS # 0.1 10^3/uL (0.0-0.5); EOS % 1.3 % (0.0-3.0); HEMOGLOBIN 14.1 g/dl (12.0-15.5); LYMPH # 2.6 10^3/uL (1.5-5.0); MEAN CORPUSCULAR HEMOGLOBIN 30.7 pg (27.0-33.0); MEAN CORPUSCULAR HGB CONC 32.8 g/dl (32.0-36.5); MEAN CORPUSCULAR VOLUME 93.5 fl (80.0-96.0); MONO # 0.8 10^3/uL (0.0-0.8); MONO % 8.1 % (2.0-8.0); NEUTROPHILS # 6.6 10^3/uL (1.5-8.5); NEUTROPHILS % 64.8 % (36.0-66.0); PLATELET COUNT, AUTOMATED 268 10^3/uL (150-450); WHITE BLOOD COUNT 10.2 10^3/uL (4.0-10.0)
[2022-12-15 17:27] LABS: ERYTHROCYTE SEDIMENTATION RATE 2 mm/hr (0-20)
== END ==
LOC: M LAB REF 16:31
PROVIDERS: ATTEND Pediatrics
DX: R59.0 Localized enlarged lymph nodes (principal)

== ENCOUNTER → 2022-12-24 | Outpatient (REF) | payer OTHER ==
[2022-12-24 17:17] LABS: THYROID STIMULATING HORMONE 1.109 uIU/ML (0.55-4.78)
[2022-12-24 17:19] LABS: TOTAL 25(OH) VITAMIN D 61.6 NG/ML (20.0-100.0)
== END ==
LOC: M LAB REF 16:20
PROVIDERS: ATTEND Pediatrics
DX: E55.9 Vitamin D deficiency, unspecified (principal); F41.1 Generalized anxiety disorder

== ENCOUNTER → 2023-03-11 | Outpatient (CLI) | payer OTHER | LOC: M PLAIMG 11:19 | PROVIDERS: ATTEND Pediatrics | DX: R59.0 Localized enlarged lymph nodes (principal) ==

== ENCOUNTER → 2023-03-28 | Outpatient (REF) | payer OTHER | LOC: M SFHCWAGY 12:32 | PROVIDERS: ATTEND Advanced Practice Midwife | DX: Z12.4 Encounter for screening for malignant neoplasm of cervix (principal) ==

== ENCOUNTER → 2023-03-30 | Outpatient (CLI) | payer OTHER | LOC: M WHC 13:51 | PROVIDERS: ATTEND Advanced Practice Midwife | DX: N93.8 Other specified abnormal uterine and vaginal bleeding (principal); N85.8 Other specified noninflammatory disorders of uterus ==

== ENCOUNTER → 2023-03-30 | Outpatient (CLI) | payer OTHER | LOC: M WHC 13:48 | PROVIDERS: ATTEND Advanced Practice Midwife | DX: Z12.31 Encounter for screening mammogram for malignant neoplasm of breast (principal); N63.15 Unspecified lump in the right breast, overlapping quadrants; N63.25 Unspecified lump in the left breast, overlapping quadrants ==

== ENCOUNTER → 2023-04-12 | Outpatient (CLI) | payer OTHER | LOC: M WHC 07:28 | PROVIDERS: ATTEND Advanced Practice Midwife | DX: N60.01 Solitary cyst of right breast (principal); N60.21 Fibroadenosis of right breast; N63.21 Unspecified lump in the left breast, upper outer quadrant; Z12.31 Encounter for screening mammogram for malignant neoplasm of breast ==

== ENCOUNTER → 2023-05-24 | Outpatient (REF) | payer OTHER ==
[2023-05-24 14:09] LABS: CK-MB VALUE MASS < 1.0 NG/ML (<3.6)
[2023-05-24 14:13] LABS: THYROID STIMULATING HORMONE 1.377 uIU/ML (0.55-4.78)
[2023-05-24 14:14] LABS: CPK CREATINE PHOSPHOKINASE 107 U/L (34-145); MB/CK RELATIVE INDEX 0.93 (< OR =4)
[2023-05-26 00:07] LABS: ALDOLASE 3.9 U/L (3.3-10.3)
== END ==
LOC: M LAB REF 12:38
PROVIDERS: ATTEND Pediatrics
DX: R68.89 Other general symptoms and signs (principal)

== ENCOUNTER → 2023-06-02 | Outpatient (CLI) | payer BC, OTHER | LOC: M PLAIMG 10:36 | PROVIDERS: ATTEND Pediatrics | DX: R68.89 Other general symptoms and signs (principal) ==

== ENCOUNTER 2023-07-03 12:57 | Emergency (ER) | payer BC, OTHER ==
[~2023-07-03] VITALS: Ht 172.7 cm; Wt 75.0 kg
[2023-07-03] MEDS: LIDOCAINE 1% MDV 20ML VIAL INFIL ONE (17:00)
[2023-07-03 17:54] VITALS: BP 126/75; TEMP 97.6; O2SAT 100
== END 2023-07-03 17:55 | disposition home or self-care (01) ==
LOC: M ED 12:57
DX: S61.211A Laceration without foreign body of left index finger without damage to nail, initial encounter (principal); W26.8XXA Contact with other sharp object(s), not elsewhere classified, initial encounter; Y92.009 Unspecified place in unspecified non-institutional (private) residence as the place of occurrence of the external cause; Y93.G1 Activity, food preparation and clean up; Y99.9 Unspecified external cause status; F17.200 Nicotine dependence, unspecified, uncomplicated; Z79.899 Other long term (current) drug therapy; Z88.2 Allergy status to sulfonamides

== ENCOUNTER → 2023-10-12 | Outpatient (CLI) | payer BC ==
[~2023-10-12] MED LIST changes: +AZEL1SPR3; +BUPR-597; +BUPR150T12 PO; -BUPR300T92; -FAMO40TA3; +FAMO40TA3 PO; +FLUTISP; -MAGN400T2; +MAGN400T2 PO; +PROHANCE 279.3MG/ML 15ML VIAL ONE; -VITA200032; +VITA200032 PO
== END ==
LOC: M PLAIMG 10:16
PROVIDERS: ATTEND Advanced Practice Midwife
DX: R92.8 Other abnormal and inconclusive findings on diagnostic imaging of breast (principal)
CPT/HCPCS: A9576; C8908

== ENCOUNTER → 2024-04-16 | Outpatient (REF) | payer OTHER ==
[~2024-04-16] MED LIST changes: -PROHANCE 279.3MG/ML 15ML VIAL ONE
== END ==
LOC: M LAB REF 16:06
PROVIDERS: ATTEND Pediatrics
DX: J02.9 Acute pharyngitis, unspecified (principal)

== ENCOUNTER → 2024-05-01 | Outpatient (REF) | payer OTHER ==
[2024-05-01 13:08] LABS: BASO % 0.4 % (0.0-1.0); EOS # 0.1 10^3/uL (0.0-0.5); EOS % 1.3 % (0.0-3.0); HEMATOCRIT 42.6 % (36.0-47.0); HEMOGLOBIN 14.2 g/dl (12.0-15.5); LYMPH # 2.4 10^3/uL (1.5-5.0); LYMPH % 23.9 % (24.0-44.0); MEAN CORPUSCULAR HEMOGLOBIN 30.5 pg (27.0-33.0); MEAN CORPUSCULAR HGB CONC 33.3 g/dl (32.0-36.5); MEAN CORPUSCULAR VOLUME 91.4 fl (80.0-96.0); MONO % 10.2 % (2.0-8.0); NEUTROPHILS # 6.3 10^3/uL (1.5-8.5); NEUTROPHILS % 63.8 % (36.0-66.0); PLATELET COUNT, AUTOMATED 315 10^3/uL (150-450); RED BLOOD COUNT 4.66 10^6/uL (4.00-5.40); WHITE BLOOD COUNT 9.9 10^3/uL (4.0-10.0)
== END ==
LOC: M LAB REF 12:23
PROVIDERS: ATTEND Pediatrics
DX: F41.1 Generalized anxiety disorder (principal); F17.200 Nicotine dependence, unspecified, uncomplicated

== ENCOUNTER → 2024-05-17 | Outpatient (REF) | payer OTHER ==
[2024-05-17 18:28] LABS: BASO % 0.5 % (0.0-1.0); EOS # 0.1 10^3/uL (0.0-0.5); EOS % 1.2 % (0.0-3.0); HEMATOCRIT 42.3 % (36.0-47.0); HEMOGLOBIN 14.1 g/dl (12.0-15.5); LYMPH # 2.2 10^3/uL (1.5-5.0); LYMPH % 25.3 % (24.0-44.0); MEAN CORPUSCULAR HEMOGLOBIN 31.1 pg (27.0-33.0); MEAN CORPUSCULAR HGB CONC 33.3 g/dl (32.0-36.5); MEAN CORPUSCULAR VOLUME 93.2 fl (80.0-96.0); MONO # 0.6 10^3/uL (0.0-0.8); MONO % 7.1 % (2.0-8.0); NEUTROPHILS # 5.6 10^3/uL (1.5-8.5); NEUTROPHILS % 65.7 % (36.0-66.0); PLATELET COUNT, AUTOMATED 293 10^3/uL (150-450); RED BLOOD COUNT 4.54 10^6/uL (4.00-5.40); WHITE BLOOD COUNT 8.6 10^3/uL (4.0-10.0)
[2024-05-17 18:44] LABS: LIPASE 34 U/L (12-53)
[2024-05-17 18:46] LABS: ALBUMIN 4.2 G/DL (3.2-5.2); ALKALINE PHOSPHATASE 77 U/L (35-104); ALT/SGPT 18 U/L (7.0-40); AST/SGOT 12 U/L (<34); BILIRUBIN,TOTAL 0.3 MG/DL (0.3-1.2); BLOOD UREA NITROGEN 10 MG/DL (9-23); CALCIUM LEVEL 10.1 MG/DL (8.5-10.1); CARBON DIOXIDE LEVEL 30 MMOL/L (20-31); CHLORIDE LEVEL 104 MMOL/L (98-107); CREATININE FOR GFR 0.72 MG/DL (0.55-1.30); GLOMERULAR FILTRATION RATE > 60.0 (>58); GLUCOSE, FASTING 101 MG/DL (60-100); POTASSIUM SERUM 4.6 MMOL/L (3.5-5.1); SODIUM LEVEL 142 MMOL/L (136-145); TOTAL PROTEIN 7.2 G/DL (5.7-8.2)
== END ==
LOC: M LAB REF 16:49
PROVIDERS: ATTEND Nurse Practitioner Family
DX: R10.9 Unspecified abdominal pain (principal)

== ENCOUNTER → 2024-05-17 | Outpatient (CLI) | payer BC, OTHER ==
[2024-05-17 13:08] LABS: APPEARANCE, URINE HAZY (CLEAR); BACTERIA, URINE AUTO NEGATIVE (NEGATIVE); BILIRUBIN, URINE AUTO NEGATIVE (NEGATIVE); BLOOD, URINE BLOOD 1+ (NEGATIVE); COLOR, URINE YELLOW (YELLOW); GLUCOSE, URINE (UA) AUTO NEGATIVE (NEGATIVE); KETONE, URINE AUTO NEGATIVE (NEGATIVE); LEUKOCYTE ESTERASE, URINE AUTO NEGATIVE (NEGATIVE); MUCUS, URINE SMALL (NEGATIVE); NITRITE, URINE AUTO NEGATIVE (NEGATIVE); PROTEIN, URINE AUTO NEGATIVE (NEGATIVE); RBC, URINE AUTO 5 /HPF (0-3); SPECIFIC GRAVITY URINE AUTO 1.021 (1.002-1.035); SQUAMOUS EPITHELIAL CELL UR AU 2 /HPF (0-6); WBC, URINE AUTO 1 /HPF (0-3)
== END ==
LOC: M RAD 08:24
PROVIDERS: ATTEND Pediatrics
DX: R10.9 Unspecified abdominal pain (principal); M75.31 Calcific tendinitis of right shoulder; M75.32 Calcific tendinitis of left shoulder

== ENCOUNTER → 2024-07-30 | Outpatient (REF) | payer OTHER ==
[2024-07-30 15:13] LABS: APPEARANCE, URINE CLEAR (CLEAR); BACTERIA, URINE AUTO 2+ (NEGATIVE); BILIRUBIN, URINE AUTO NEGATIVE (NEGATIVE); BLOOD, URINE BLOOD NEGATIVE (NEGATIVE); COLOR, URINE YELLOW (YELLOW); GLUCOSE, URINE (UA) AUTO NEGATIVE (NEGATIVE); KETONE, URINE AUTO NEGATIVE (NEGATIVE); LEUKOCYTE ESTERASE, URINE AUTO NEGATIVE (NEGATIVE); NITRITE, URINE AUTO NEGATIVE (NEGATIVE); PROTEIN, URINE AUTO NEGATIVE (NEGATIVE); RBC, URINE AUTO 1 /HPF (0-3); SPECIFIC GRAVITY URINE AUTO 1.005 (1.002-1.035); SQUAMOUS EPITHELIAL CELL UR AU 2 /HPF (0-6); UROBILINOGEN, URINE AUTO 0.2 mg/dL (0.0-2.0); WBC, URINE AUTO 0 /HPF (0-3)
== END ==
LOC: M LAB REF 14:18
PROVIDERS: ATTEND Pediatrics
DX: R31.29 Other microscopic hematuria (principal)